=== PATIENT | male | born 1980 | race Caucasian/White ===

== ENCOUNTER 2021-05-15 08:52 | Emergency (ER) | payer OTHER ==
[~2021-05-15] VITALS: Ht 175.3 cm; Wt 99.8 kg
== END 2021-05-15 14:17 | disposition home or self-care (01) ==
LOC: ER 08:52
DX: B34.9 Viral infection, unspecified (principal); Z20.822 Contact with and (suspected) exposure to COVID-19

== ENCOUNTER 2022-02-18 20:04 | Emergency (ER) | payer OTHER ==
[~2022-02-18] VITALS: Ht 175.3 cm; Wt 86.2 kg
== END 2022-02-19 | disposition home or self-care (01) ==
LOC: ER 20:04
DX: A49.3 Mycoplasma infection, unspecified site (principal)

== ENCOUNTER 2024-01-08 09:12 | Emergency (ER) | payer OTHER ==
[~2024-01-08] VITALS: Ht 175.3 cm; Wt 85.7 kg
[2024-01-08] MEDS ORDERED: KETOROLAC TROMETHAMINE 30 MG VIAL IM STA (11:58)
== END 2024-01-08 12:14 | disposition home or self-care (01) ==
LOC: ER 09:13
DX: R53.81 Other malaise (principal); Z20.822 Contact with and (suspected) exposure to COVID-19